=== PATIENT | female | born 1975 | race Caucasian/White ===

== ENCOUNTER 2022-02-25 15:59 | Emergency (ER) | payer OTHER, SELFPAY ==
--- NOTE | ~2022-02-25 | XR_ITS ---
EXAM: XR wrist RT min 3V, XR forearm RT 2V DATE: 02/25/2022 16:52 HISTORY: pain and swelling on distal ulna . COMPARISON: None available. FINDINGS: Normal mineralization. No fracture or dislocation. No lytic or blastic lesion. Joint space s are maintained. No erosion or periosteal change. Soft tissues within normal limits. IMPRESSION: No acute osseous finding in the right wrist or forearm. Reviewed, dictated and finalized at location K. THERAPIST IMPRESSION: No acute osseous finding in the right wrist or forearm.
[2022-02-25 16:06] VITALS: BP 155/101; PULSE 102; RESP 18; TEMP 37.3; O2SAT 99
--- NOTE | 2022-02-25 16:10 | ED.UPPEXIN ---
HPI - Extremity Injury (Upper) General Chief Complaint: Extremity Injury, Upper <Charlotte Smith APRN - Last Filed: 02/25/22 16:25> Stated Complaint: Right Arm Pain <Charlotte Smith APRN - Last Filed: 02/25/22 16:25> Time Seen by Provider: 02/25/22 16:13 <Charlotte Smith APRN - Last Filed: 02/25/22 16:25> Source: patient, RN notes reviewed and old records reviewed <Charlotte Smith APRN - Last Filed: 02/25/22 16:25> Mode of arrival: ambulatory <Charlotte Smith APRN - Last Filed: 02/25/22 16:25> Limitations: no limitations <Charlotte Smith APRN - Last Filed: 02/25/22 16:25> History of Present Illness HPI narrative: 46-year-old female presents to the [facility] with complaints of distal right forearm and wrist pain since this morning. Patient reports that she was going through the door and her boyfriend was coming out the door when the door swung open into her arm. Mild swelling and bruising noted. Pain with movement of the fingers. Positive radial pulse. Capillary refill under 2 seconds and sensation intact in all 5 fingers. Tried applying ice states that it makes the pain worse. <Charlotte Smith APRN - Last Filed: 02/25/22 16:25> MD complaint: injury to: right <Charlotte Smith APRN - Last Filed: 02/25/22 16:25> Onset (ago): hour(s) <Charlotte Smith APRN - Last Filed: 02/25/22 16:25> Exacerbating factors: movement of extremity <Charlotte Smith APRN - Last Filed: 02/25/22 16:25> Treatments prior to arrival: cold therapy <Charlotte Smith APRN - Last Filed: 02/25/22 16:25> Related Data Home Medications: Home Medications Medication Instructions Recorded Confirmed alprazolam 0.5 mg tablet (Xanax) 0.5 mg PO DAILY 02/25/22 02/25/22 amlodipine 5 mg tablet mg 02/25/22 furosemide 40 mg tablet mg 02/25/22 potassium chloride 20 mEq meq PO 02/25/22 tablet,extended release(part/cryst) <Charlotte A. Sarah SAW REPAIRER - Last Filed: 02/25/22 16:25> Allergies/Adverse Reactions: Allergies Allergy/AdvReac Type Severity Reaction Status Date / Time clopidogrel [From Plavix] Allergy Hives Verified 02/25/22 16:09 latex Allergy Hives Verified 02/25/22 16:09 Sulfa (Sulfonamide AdvReac Nausea and Verified 02/25/22 16:09 Antibiotics) Vomiting <Charlotte A. Sarah, SAW REPAIRER - Last Filed: 02/25/22 16:25> Review of Systems Review of Systems: All systems reviewed & are unremarkable except as noted in HPI and below <Charlotte A. Sarah, SAW REPAIRER - Last Filed: 02/25/22 16:25> Constitutional: Constitutional: Reports no additional constitutional complaints <Charlotte A. Sarah, SAW REPAIRER - Last Filed: 02/25/22 16:25> Eyes: Eyes: Reports no additional eye complaints <Charlotte A. Sarah, SAW REPAIRER - Last Filed: 02/25/22 16:25> ENT: Reports system reviewed and no additional complaints, except as documented <Charlotte AWalter Smith, SAW REPAIRER - Last Filed: 02/25/22 16:25> Cardiovascular: Cardiovascular: Reports no additional cardiovascular complaints, Denies chest pain and Denies dyspnea <Charlotte A. Sarah, SAW REPAIRER - Last Filed: 02/25/22 16:25> Respiratory: Respiratory: Reports no additional respiratory complaints, Denies chest congestion, Denies cough and Denies dyspnea <Charlotte A. Sarah, SAW REPAIRER - Last Filed: 02/25/22 16:25> Gastrointestinal: Gastrointestinal: Reports no additional gastrointestinal complaints, Denies abdominal pain, Denies nausea and Denies vomiting <Charlotte A. Sarah, SAW REPAIRER - Last Filed: 02/25/22 16:25> Musculoskeletal: Musculoskeletal: Reports as per HPI, Reports arthralgias (Right wrist) and Reports joint swelling (Right wrist) <Charlotte A. Sarah, SAW REPAIRER - Last Filed: 02/25/22 16:25> Integumentary/Breasts: Skin/Breast: Reports system reviewed and no additional complaints, except as docu <Charlotte Smith APRN - Last Filed: 02/25/22 16:25> Neurologic: Reports system reviewed and no additional complaints, except as documented <Charlotte Smith APRN - Last Filed: 02/25/22 16:25> Psychiatric: Psychiatric:
--- NOTE | 2022-02-25 16:21 | PC.NURSE ---
1616- Pt sent to [facility] for xray d/t no tech today. RN to RN report given to Leslie Shi
== END 2022-02-25 17:15 | disposition home or self-care (01) ==
PROVIDERS: Emergency Provider Nurse Practitioner; PCP Physician Assistant Medical
DX: S50.11XA Contusion of right forearm, initial encounter (principal); W20.8XXA Other cause of strike by thrown, projected or falling object, initial encounter
CPT/HCPCS: 73090; 73110; 99213; G0463